=== PATIENT | female | born 1975 | race American Indian/Alaskan Native ===

== ENCOUNTER 2017-06-10 11:07 | Emergency (ER) | payer MEDICAID, OTHER ==
[2017-06-10 11:16] VITALS: BMI 28.2
[2017-06-10 11:34] VITALS: TEMP 98
[2017-06-10] MEDS ORDERED: Sodium Chloride 0.9% 500 ML IV ONE (11:40)
--- NOTE | 2017-06-10 11:50 | ED PDOC ---
Arrival/HPI - General Chief Complaint: Pain, Chronic Time Seen by Provider: 06/10/17 11:27 Historian: Patient - History of Present Illness Narrative History of Present Illness (Text): 06/10/17 11:52 A 42 year old female, whose past medical history includes Lupus, presents to the emergency department because she didn't feel well this morning. Patient reports she developed chest pain, abdominal pain, back pain, headache, generalized muscle aches and cramps, dizziness, nausea and diaphoresis. States she thinks it is flare up of lupus. Patient has not been on her medications in about 6 months. Patient was taking flexeril, plaquenil and diclofenac. Denies any vomiting, diarrhea, shortness of breath, fever or any other complaints at this time. Patient also denies smoking. Symptom Onset: Sudden Symptom Course: Unchanged Activities at Onset: Rest Context: Home Associated Symptoms (Text): 06/10/17 12:29 patient has not had treatment for her lupus in many months.She believes that she woke up this morning with a lupus flare.She has multiple complaints. She complains of headache dizziness or lightheadedness and nausea diaphoresis chest pain abdominal pain back pain generalized myalgias with cramps. She does not appear ill. Past Medical History - Provider Review Nursing Documentation Reviewed: Yes - Infectious Disease Hx of Infectious Diseases: None - Tetanus Immunization Tetanus Immunization: Unknown - Cardiac Hx Cardiac Disorders: No - Pulmonary Hx Respiratory Disorders: No - Neurological Hx Neurological Disorder: Yes HX Cerebrovascular Accident: Yes (2010) - HEENT Hx HEENT Disorder: No - Renal Hx Renal Disorder: No - Endocrine/Metabolic Hx Endocrine Disorders: Yes Hx Systemic Lupus Erythematosus: Yes - Hematological/Oncological Hx Blood Disorders: No - Integumentary Hx Dermatological Disorder: No - Musculoskeletal/Rheumatological Hx Musculoskeletal Disorders: Yes Hx Arthritis: Yes (Rheumatoid) Hx Rheumatoid Arthritis: Yes Other/Comment: lupus - Gastrointestinal Hx Gastrointestinal Disorders: No - Genitourinary/Gynecological Hx Genitourinary Disorders: No - Psychiatric Hx Psychophysiologic Disorder: No Hx Depression: No Hx Emotional Abuse: No Hx Physical Abuse: No Hx Substance Use: No - Past Surgical History Past Surgical History: No Previous - Suicidal Assessment Feels Threatened In Home Enviroment: No Family/Social History - Physician Review Nursing Documentation Reviewed: Yes Family/Social History: No Known Family HX Smoking Status: Never Smoked Hx Alcohol Use: No Hx Substance Use: No Hx Substance Use Treatment: No Allergies/Home Meds Allergies/Adverse Reactions: Allergies No Known Allergies Allergy (Verified 06/10/17 11:33) Home Medications: Home Meds Medication Instructions Recorded Confirmed Diclofenac [Diclofenac] 75 mg PO DAILY 08/30/13 06/10/17 Hydroxychloroquine Sulfate 200 mg PO BID 08/30/13 06/10/17 [Plaquenil] Review of Systems - Physician Review All systems were reviewed & negative as marked: Yes - Review of Systems Constitutional: Other (generalized muscle aches and cramps). absent: Fevers Respiratory: absent: SOB, Cough Cardiovascular: Chest Pain. absent: Palpitations, Syncope Gastrointestinal: Abdominal Pain, Nausea. absent: Diarrhea, Vomiting Musculoskeletal: Back Pain, Myalgias Neurological: Headache, Dizziness. absent: Focal Weakness Endocrine: Diaphoresis Physical Exam Vital Signs Reviewed: Yes Vital Signs Temp Pulse Resp BP Pulse Ox 06/10/17 11:21 98 F 72 18 117/77 100 Temperature: Afebrile Blood Pressure: Normal Pulse: Regular Respiratory Rate: Normal Appearance: Positive for: Well-Appearing, Non-Toxic, Uncomfortable Pain Distress: Mild Mental Status: Positive for: Alert and Oriented X 3 - Systems Exam Head: Present: Atraumatic, Normocephalic Pupils: Present: PERRL Extroacular Muscles: Present: EOMI Conjunctiva: Present: Normal Mouth: Present: Moist Mucous Membranes Pharnyx: No: ERYTHEMA, EXUDATE, TONSILS ENLARGED Neck: Present: Normal Range of Motion Respiratory/Chest: Present: Clear to Auscultation, Good Air Exchange. No: Respiratory Distress, Accessory Muscle Use Cardiovascular: Present: Regular Rate and Rhythm, Normal S1, S2. No: Murmurs Abdomen: Present: Normal Bowel Sounds. No: Tenderness, Distention, Peritoneal Signs Back: Present: Normal Inspection Upper Extremity: Present: Normal Inspection. No: Cyanosis, Edema Lower Extremity: Present: Normal Inspection. No: Edema Neurological: Present: GCS=15, CN II-XII Intact, Speech Normal Skin: Present: Warm, Dry, Normal Color. No: Rashes Psychiatric: Present: Alert, Oriented x 3, Normal Insight, Normal Concentration Medical Decision Making ED Course and Treatment: 06/10/17 11:43 Impression: A 42 year old female with flare up of lupus. Plan: -- EKG -- labs -- IV fluids, Toradol, Zofran -- Urinalysis -- Reassess and disposition Prior Visits: Notes and results from previous visits were reviewed. Patient last reported to the emergency department on 03/02/16 for evaluation of lupus flare up. Progress Notes: 06/10/17 12:31 EKG shows normal sinus rhythm rate approximately [address] or T-wave changes 06/10/17 13:47 Symptoms improved. Discharged home accompanied by family. Phone number given for the clinic so patient can follow up and get back on to her regular regimen. We'll treat with prednisone and Ultram for the short-term. - Lab Interpretations Lab Results: 06/10/17 12:20 06/10/17 12:50 Lab Results 06/10/17 12:50: Sodium 140, Potassium 3.8, Chloride 107, Carbon Dioxide 24, Anion Gap 13, BUN 20, Creatinine 0.9, Est GFR ( Amer) > 60, Est GFR (Non- Af Amer) > 60, Random Glucose 90, Calcium 8.4, Total Bilirubin 0.4, AST 40 H, ALT 29, Alkaline Phosphatase 60, Lactate Dehydrogenase 525, Total Creatine Kinase 278 H, CK-MB (CK-2) 1.9, CK-MB (CK-2) % Cancelled, Troponin I < 0.01, Total Protein 7.5, Albumin 4.0, Globulin 3.5, Albumin/Globulin Ratio 1.1, Lipase 294 06/10/17 12:20: WBC 5.9 D, RBC 4.15, Hgb 9.9 L, Hct 31.4 L, MCV 75.7 L, MCH 23.9 L, MCHC 31.5, RDW 16.0 H, Plt Count 157, MPV 11.1 H, Gran % 84.5 H, Lymph % (Auto) 9.4 L, [place] % (Auto) 5.8, Eos % (Auto) 0.0 L, Baso % (Auto) 0.3, Gran # 4.95, Lymph # 0.6 L, [place] # 0.3, Eos # 0.0, Baso # 0.02 I have reviewed the lab results: Yes - EKG Interpretation Interpreted by ED Physician: Yes Type: 12 lead EKG - Medication Orders Current Medication Orders: Discontinued Medications Sodium Chloride (Sodium Chloride 0.9%) 500 mls @ 500 mls/hr IV ONCE ONE Stop: 06/10/17 12:39 Last Admin: 06/10/17 12:00 Dose: 500 mls/hr Ketorolac Tromethamine (Toradol) 30 mg IVP ONCE ONE Stop: 06/10/17 11:41 Last Admin: 06/10/17 13:16 Dose: 30 mg Ondansetron HCl (Zofran Inj) 4 mg IVP ONCE ONE Stop: 06/10/17 11:41 Last Admin: 06/10/17 12:00 Dose: 4 mg - Scribe Statement The provider has reviewed the documentation as recorded by the Lolly Landin Provider Scribe Attestation: All medical record entries made by the Lolly were at my direction and personally dictated by me. I have reviewed the chart and agree that the record accurately reflects my personal performance of the history, physical exam, medical decision making, and the department course for this patient. I have also personally directed, reviewed, and agree with the discharge instructions and disposition. Disposition/Present on Arrival - Present on Arrival Any Indicators Present on Arrival: No History of DVT/PE: No History of Uncontrolled Diabetes: No Urinary Catheter: No History of Decub. Ulcer: No History Surgical Site Infection Following: None - Disposition Have Diagnosis and Disposition been Completed?: Yes Diagnosis: Lupus (systemic lupus erythematosus) Disposition: HOME/ ROUTINE Disposition Time: 13:48 Patient Plan: Discharge Condition: IMPROVED Discharge Instructions (ExitCare): Connective Tissue Disorders (ED), Autoimmune Disease (ED) Additional Instructions: Moist heat. Follow-up in the clinic. Follow up in ER as needed. Prescriptions: Prednisone [Deltasone] 20 mg PO DAILY #5 tablet Cyclobenzaprine [Flexeril] 5 mg PO Q8 #15 tab Tramadol HCl [Ultram] 50 mg PO Q6 PRN #15 tab PRN Reason: Pain Referrals: PCP,NO [Primary Care Provider] - Follow up with primary [facility] [place] [Outside] - Follow up with primary
[2017-06-10 12:28] LABS: BASO # 0.02 K/mm3 (0.0-2.0); BASO % 0.3 % (0.0-3.0); GRAN # 4.95 (1.4-6.5); GRAN % 84.5 % (50.0-68.0); HEMOGLOBIN 9.9 gm/dL (12.0-16.0); LYMPH # 0.6 (1.2-3.4); LYMPH % 9.4 % (22.0-35.0); MEAN CELL VOLUME 75.7 fL (80.0-105.0); MEAN CORPUSCULAR HEMOGLOBIN 23.9 pg (25.0-35.0); MEAN CORPUSCULAR HGB CONC 31.5 g/dl (31.0-37.0); MEAN PLATELET VOLUME 11.1 fl (7.0-11.0); MONO # 0.3 (0.1-0.6); MONO % 5.8 % (1.0-6.0); PLATELET COUNT 157 10^3/uL (120.0-450.0); RBC 4.15 10^6/uL (3.5-6.1); WHITE BLOOD COUNT 5.9 10^3/ul (4.5-11.0)
[2017-06-10 13:12] LABS: ALB/GLOB RATIO 1.1 (1.1-1.8); ALT/SGPT 29 U/L (7-56); AST/SGOT 40 U/L (15-39); BLOOD UREA NITROGEN 20 mg/dL (7-21); CALCIUM 8.4 mg/dL (8.4-10.5); GFR AFRICAN-AMERICAN > 60; GFR NON-AFRICAN AMERICAN > 60; LIPASE 294 U/L (23-300)
[2017-06-10 13:24] LABS: TROPONIN I < 0.01 ng/mL
[2017-06-10 13:28] LABS: CK-MB 1.9 ng/mL (0.0-3.6)
[2017-06-10 14:08] VITALS: BP 116/70; PULSE 77; RESP 16; O2SAT 99
--- NOTE | 2017-06-10 20:53 | CARD ---
APPROVED REPORT EKG Measurement Heart [id number] <Conclusion> Normal sinus rhythm Normal ECG
== END 2017-06-10 14:08 | disposition home or self-care (01) ==
LOC: ED 11:07
DX: M32.9 Systemic lupus erythematosus, unspecified (principal)
CPT/HCPCS: 80053; 82550; 82553; 83615; 83690; 84484; 85025; 93005; 96361; 96374; 96375; 99284; J1885; J2405; J7040

== ENCOUNTER 2017-07-02 02:12 | Emergency (ER) | payer MEDICAID, OTHER ==
[2017-07-02 02:13] VITALS: BMI 28.2
[2017-07-02] MEDS ORDERED: DiphenhydrAMINE 50 mg/ml Inj IVP ONE (02:38)
[2017-07-02] MEDS ORDERED: Famotidine 20mg/50ml 20 MG/50 ML BAG IVPB STA (02:38)
--- NOTE | 2017-07-02 02:46 | ED PDOC ---
Arrival/HPI - General Chief Complaint: Allergic Reaction Time Seen by Provider: 07/02/17 02:19 Historian: Patient, Family - History of Present Illness Narrative History of Present Illness (Text): 07/02/17 02:37 Francy Menjivar is a 42 year old female, with a history of lupus, rheumatoid arthritis and CVA, presents to the emergency department complaining of diffuse itchy hives after taking her medications. According to family member, patient may have developed an allergic reaction to aspirin, which patient took additional to her routine meds. Denies any tongue swelling, throat fullness or difficulty breathing. Denies any chest pain. Denies fever, chills, headache, dizziness, nausea, vomiting, urinary symptoms, or any other complaints at this time. Time/Duration: 1 hour Symptom Onset: Sudden Symptom Course: Unchanged Severity Level: Mild Activities at Onset: Light Context: Home Past Medical History - Provider Review Nursing Documentation Reviewed: Yes - Infectious Disease Hx of Infectious Diseases: None - Tetanus Immunization Tetanus Immunization: Unknown - Cardiac Hx Cardiac Disorders: No - Pulmonary Hx Respiratory Disorders: No - Neurological Hx Neurological Disorder: Yes HX Cerebrovascular Accident: Yes (2010) - HEENT Hx HEENT Disorder: No - Renal Hx Renal Disorder: No - Endocrine/Metabolic Hx Endocrine Disorders: Yes Hx Systemic Lupus Erythematosus: Yes - Hematological/Oncological Hx Blood Disorders: No - Integumentary Hx Dermatological Disorder: No - Musculoskeletal/Rheumatological Hx Musculoskeletal Disorders: Yes Hx Arthritis: Yes (Rheumatoid) Hx Rheumatoid Arthritis: Yes Other/Comment: lupus - Gastrointestinal Hx Gastrointestinal Disorders: No - Genitourinary/Gynecological Hx Genitourinary Disorders: No - Psychiatric Hx Psychophysiologic Disorder: No Hx Depression: No Hx Emotional Abuse: No Hx Physical Abuse: No Hx Substance Use: No - Past Surgical History Past Surgical History: No Previous - Anesthesia Hx Anesthesia: No - Suicidal Assessment Feels Threatened In Home Enviroment: No Family/Social History - Physician Review Nursing Documentation Reviewed: Yes Family/Social History: No Known Family HX Smoking Status: Never Smoked Hx Alcohol Use: No Hx Substance Use: No Hx Substance Use Treatment: No Allergies/Home Meds Allergies/Adverse Reactions: Allergies aspirin [From Wanda Aspirin] Allergy (Verified 07/02/17 03:45) RASH Home Medications: Home Meds Medication Instructions Recorded Confirmed Hydroxychloroquine Sulfate 200 mg PO BID 08/30/13 07/02/17 [Plaquenil] Review of Systems - Physician Review All systems were reviewed & negative as marked: Yes - Review of Systems Constitutional: Normal. absent: Fatigue, Fevers Respiratory: Normal. absent: SOB, Cough Cardiovascular: Normal, Syncope. absent: Chest Pain, Palpitations Gastrointestinal: absent: Abdominal Pain, Diarrhea, Nausea, Vomiting Skin: Rash (itchy hives ) Psychiatric: Normal Physical Exam Vital Signs Reviewed: Yes Vital Signs Temp Pulse Resp BP Pulse Ox 07/02/17 04:45 72 17 116/83 100 07/02/17 03:54 97.9 F 79 17 110/71 100 Temperature: Afebrile Blood Pressure: Normal Pulse: Regular Respiratory Rate: Normal Appearance: Positive for: Well-Appearing, Non-Toxic, Comfortable Pain Distress: None Mental Status: Positive for: Alert and Oriented X 3 - Systems Exam Head: Present: Atraumatic, Normocephalic Pupils: Present: PERRL Conjunctiva: Present: Normal Mouth: Present: Moist Mucous Membranes Pharnyx: Present: Normal. No: ERYTHEMA, EXUDATE, TONSILS ENLARGED Respiratory/Chest: Present: Clear to Auscultation, Good Air Exchange. No: Respiratory Distress, Accessory Muscle Use Cardiovascular: Present: Regular Rate and Rhythm, Normal S1, S2. No: Murmurs Abdomen: Present: Normal Bowel Sounds. No: Tenderness, Distention, Peritoneal Signs Upper Extremity: Present: Normal Inspection. No: Cyanosis, Edema Lower Extremity: Present: Normal Inspection. No: Edema Neurological: Present: GCS=15, CN II-XII Intact, Speech Normal Skin: Present: Warm, Dry, Rashes (Urticaria ), Normal Color Psychiatric: Present: Alert, Oriented x 3 Medical Decision Making ED Course and Treatment: 07/02/17 02:48 Impression: A 42 year old female who presents to the emergency department complaining of allergic hives. Plan: -- EKG -- Benadryl -- Pepcid -- Solumedrol -- Reassess and disposition Progress Notes: 07/02/17 2:48 EKG reviewed by me: NSR @ 75 bpm. Normal [place]. Normal interval. 07/02/17 04:33 On re-evaluation, patient feels better and is in no acute distress. I have discussed the results and plan with the patient, who expresses understanding. Patient in agreement with plan to be discharged home. Patient is stable for discharge. Patient was instructed to follow up with physician or return if symptoms worsen or new concerning symptoms arise. Re-evaluation Time: :33 Reassessment Condition: Re-examined, Improved - Medication Orders Current Medication Orders: Discontinued Medications Diphenhydramine HCl (Benadryl) 25 mg IVP ONCE ONE Stop: 07/02/17 02:39 Last Admin: 07/02/17 02:50 Dose: 25 mg Comments: Administration without test cleared with pharmacy. Famotidine (Pepcid 20mg/50ml Premix) 20 mg in 50 mls @ 100 mls/hr IVPB STAT STA Stop: 07/02/17 03:07 Last Admin: 07/02/17 02:55 Dose: 100 mls/hr Comments: Administration without test cleared by pharmacy. Methylprednisolone (Solu-Medrol) 125 mg IVP ONCE ONE Stop: 07/02/17 02:39 Last Admin: 07/02/17 02:53 Dose: 125 mg Comments: Administration without test cleared with Dr. Graham, explained the risk to the patient in case of , patient gave consent to administer meds. Patient is alert awake and oriented. - Scribe Statement The provider has reviewed the documentation as recorded by the Scribe Holland Valle Provider Attestation: Provider Scribe Attestation: All medical record entries made by the Scribe were at my direction and personally dictated by me. I have reviewed the chart and agree that the record accurately reflects my personal performance of the history, physical exam, medical decision making, and the department course for this patient. I have also personally directed, reviewed, and agree with the discharge instructions and disposition. Disposition/Present on Arrival - Present on Arrival Any Indicators Present on Arrival: No History of DVT/PE: No History of Uncontrolled Diabetes: No Urinary Catheter: No History of Decub. Ulcer: No History Surgical Site Infection Following: None - Disposition Have Diagnosis and Disposition been Completed?: Yes Diagnosis: Allergic reaction Disposition: HOME/ ROUTINE Disposition Time: 04:33 Patient Problems: Current Active Problems Problem Status Onset Allergic reaction Acute Condition: GOOD Discharge Instructions (ExitCare): Urticaria (ED) Prescriptions: hydrOXYzine HCl [Atarax] 25 mg PO Q6H #21 tab Famotidine [Pepcid] 20 mg PO BID #10 tab predniSONE [predniSONE Tab] 20 mg PO TID #15 tab Forms: [employer] ([place])
[2017-07-02 03:55] VITALS: RESP 17; TEMP 97.9; O2SAT 100
[2017-07-02 04:46] VITALS: BP 116/83; PULSE 72
--- NOTE | 2017-07-02 19:42 | CARD ---
APPROVED REPORT EKG Measurement Heart [id number] <Conclusion> Normal sinus rhythm Normal ECG
== END 2017-07-02 04:50 | disposition home or self-care (01) ==
LOC: ED 02:12
DX: L50.9 Urticaria, unspecified (principal); T50.905A Adverse effect of unspecified drugs, medicaments and biological substances, initial encounter; Y92.009 Unspecified place in unspecified non-institutional (private) residence as the place of occurrence of the external cause
CPT/HCPCS: 93005; 96365; 96375; 99283; J1200; J2930

== ENCOUNTER 2018-01-20 20:00 | Emergency (ER) | payer SELFPAY ==
[2018-01-20 20:01] VITALS: BMI 28.2
[2018-01-20 20:10] VITALS: TEMP 98.1
--- NOTE | 2018-01-20 20:47 | ED PDOC ---
Arrival/HPI <David Lara - Last Filed: 01/20/18 23:17> - General Historian: Patient - History of Present Illness Time/Duration: Other (see hpi) Context: Home <Salome Camacho - Last Filed: 01/21/18 00:35> - General Chief Complaint: Pain, Chronic Time Seen by Provider: 01/20/18 20:35 - History of Present Illness Narrative History of Present Illness (Text): 01/20/18 20:47 Francy Menjivar is a 42 year old female, with a history of lupus, rheumatoid arthritis and CVA, presents to the emergency department complaining of generalized body pain x 3 hours. Patient stated pain is making feel nauseous. Patient feels her symptoms are from Lupus exacerbation. Patient denies sob, cp , abdominal pain, pelvic pain, urinary symptoms, or abnormal gait. (Salome Camacho ) Past Medical History - Provider Review Nursing Documentation Reviewed: Yes - Infectious Disease Hx of Infectious Diseases: None - Tetanus Immunization Tetanus Immunization: Unknown - Cardiac Hx Cardiac Disorders: No - Pulmonary Hx Respiratory Disorders: No - Neurological Hx Neurological Disorder: Yes HX Cerebrovascular Accident: Yes (2010) - HEENT Hx HEENT Disorder: No - Renal Hx Renal Disorder: No - Endocrine/Metabolic Hx Endocrine Disorders: Yes Hx Systemic Lupus Erythematosus: Yes - Hematological/Oncological Hx Blood Disorders: No - Integumentary Hx Dermatological Disorder: No - Musculoskeletal/Rheumatological Hx Musculoskeletal Disorders: Yes Hx Arthritis: Yes (Rheumatoid) Hx Rheumatoid Arthritis: Yes Other/Comment: lupus - Gastrointestinal Hx Gastrointestinal Disorders: No - Genitourinary/Gynecological Hx Genitourinary Disorders: No - Psychiatric Hx Psychophysiologic Disorder: No Hx Depression: No Hx Emotional Abuse: No Hx Physical Abuse: No Hx Substance Use: No - Past Surgical History Past Surgical History: No Previous - Anesthesia Hx Anesthesia: No - Suicidal Assessment Feels Threatened In Home Enviroment: No <Salome Camacho - Last Filed: 01/21/18 00:35> Family/Social History - Physician Review Nursing Documentation Reviewed: Yes Family/Social History: Other (noncontributory) Smoking Status: Never Smoked Hx Alcohol Use: No Hx Substance Use: No Hx Substance Use Treatment: No <Salome Camacho - Last Filed: 01/21/18 00:35> Allergies/Home Meds <David Lara Last Filed: 01/20/18 23:17> <Salome Camacho - Last Filed: 01/21/18 00:35> Allergies/Adverse Reactions: Allergies aspirin [From Wanda Aspirin] Allergy (Verified 07/02/17 03:45) RASH Home Medications: Home Meds Medication Instructions Recorded Confirmed Hydroxychloroquine Sulfate 200 mg PO BID 08/30/13 07/02/17 [Plaquenil] Review of Systems - Review of Systems Constitutional: Normal. absent: Fatigue, Weight Change, Fevers Eyes: Normal ENT: Normal. absent: Sore Throat, Rhinorrhea, Sinus Congestion Respiratory: Normal. absent: SOB, Cough Cardiovascular: Normal Gastrointestinal: Normal Genitourinary Female: Normal Musculoskeletal: Arthralgias, Myalgias Skin: Normal. absent: Rash Neurological: Normal. absent: Headache, Dizziness, Focal Weakness, Gait Changes , Speech Changes, Facial Droop, Disequilibrium, Seizure Endocrine: Normal Hemo/Lymphatic: Normal Psychiatric: Normal <Salome Camacho P - Last Filed: 01/21/18 00:35> Physical Exam Temperature: Afebrile Blood Pressure: Normal Pulse: Tachycardic Respiratory Rate: Normal Appearance: Positive for: Well-Appearing, Non-Toxic, Comfortable Pain Distress: None Mental Status: Positive for: Alert and Oriented X 3 - Systems Exam Head: Present: Atraumatic, Normocephalic Pupils: Present: PERRL Extroacular Muscles: Present: EOMI Conjunctiva: Present: Normal Mouth: Present: Moist Mucous Membranes Neck: Present: Normal Range of Motion Respiratory/Chest: Present: Clear to Auscultation, Good Air Exchange. No: Respiratory Distress, Accessory Muscle Use Cardiovascular: Present: Regular Rate and Rhythm, Normal S1, S2, Tachycardic. No: Murmurs Abdomen: Present: Normal Bowel Sounds. No: Tenderness, Distention, Peritoneal Signs, Rebound, Guarding Back: Present: Normal Inspection. No: CVA Tenderness Upper Extremity: Present: Normal Inspection, Normal ROM. No: Cyanosis, Edema Lower Extremity: Present: Normal Inspection, Normal ROM. No: Edema Neurological: Present: GCS=15, CN II-XII Intact, Speech Normal, Motor Func Grossly Intact, Normal Sensory Function, Normal Cerebellar Funct, Gait Normal Skin: Present: Warm, Dry, Normal Color. No: Rashes Psychiatric: Present: Alert, Oriented x 3, Normal Insight, Normal Concentration <Salome Camacho - Last Filed: 01/21/18 00:35> Vital Signs Temp Pulse Resp BP Pulse Ox 01/21/18 00:26 74 18 98/60 L 100 01/20/18 20:05 98.1 F 118 H 24 152/78 H 99 Medical Decision Making <David Lara - Last Filed: 01/20/18 23:17> Re-evaluation Time: 23:03 Reassessment Condition: Re-examined, Improved - Lab Interpretations I have reviewed the lab results: Yes Interpretation: No clinic. lab abnormalty <Salome Camacho - Last Filed: 01/21/18 00:35> ED Course and Treatment: 01/20/18 23:02 Re-evaluation. Patient feels better. Discussed results and plan with patient who expresses understanding. All questions answered and there is agreement with the plan to discharge home with instructions. Patient stable for discharge. Return if symptoms persist or worsen. Generalized pain has improved. Patient feels well and she wishes to be discharge home 01/21/18 00:00 I reviewed the risk of using Prednisone with patient which includes AVN, osteoporosis, diabetes, glaucoma, renal failure, liver failure, or worsen of rash. She understands she could stop Prednisone at any time (Salome Camacho) - Lab Interpretations Lab Results: 01/20/18 20:55 01/20/18 20:55 Lab Results 01/20/18 23:50: Urine Color Yellow, Urine Appearance Clear, Urine pH 8.0, Ur Specific [place] 1.015, Urine Protein Trace H, Urine Glucose (UA) Negative, Urine Ketones 40 H, Urine Blood Negative, Urine Nitrate Negative, Urine Bilirubin Negative, Urine Urobilinogen 0.2, Ur Leukocyte Esterase Negative, Urine RBC 0 - 2, Urine WBC 0 - 2, Ur Epithelial Cells 1 - 3, Urine Other Mucus 01/20/18 20:55: Sodium 141, Potassium 3.8, Chloride 102, Carbon Dioxide 27, Anion Gap 15, BUN 18, Creatinine 0.9, Est GFR ( Amer) > 60, Est GFR (Non- Af Amer) > 60, Random Glucose 85, Calcium 9.6, Total Bilirubin 0.3, AST 39 H, ALT 36, Alkaline Phosphatase 57, Total Protein 8.3, Albumin 4.6, Globulin 3.7, Albumin/Globulin Ratio 1.3 01/20/18 20:55: WBC 7.2 D, RBC 4.16, Hgb 9.1 L, Hct 29.8 L, MCV 71.6 L, MCH 21.9 L, MCHC 30.5 L, RDW 17.4 H, Plt Count 223, MPV 10.6, Gran % 72.7 H, Lymph % (Auto) 20.2 L, Treasure % (Auto) 6.5 H, Eos % (Auto) 0.3 L, Baso % (Auto) 0.3, Gran # 5.25, Lymph # (Auto) 1.5, Treasure # (Auto) 0.5, Eos # (Auto) 0.0, Baso # ( Auto) 0.02 - Medication Orders Current Medication Orders: Discontinued Medications Sodium Chloride (Sodium Chloride 0.9%) 1,000 mls @ 999 mls/hr IV .Q1H1M STA Stop: 01/20/18 21:48 Last Admin: 01/20/18 21:16 Dose: 999 mls/hr eMAR Start Stop Document 01/20/18 21:16 JO (Rec: 01/20/18 21:16 [place] [id number]) Intravenous Solution Start Date 01/20/18 Start Time 21:16 End Date 01/20/18 End time 22:17 Total Infusion Time 61 Ketorolac Tromethamine (Toradol) 30 mg IVP STAT STA Stop: 01/20/18 20:49 Last Admin: 01/20/18 21:16 Dose: 30 mg MAR Pain Assessment Document 01/20/18 21:16 JOL (Rec: 01/20/18 21:17 [facility]) Pain Reassessment Is this a pain reassessment? No Sleep Is patient sleeping during reassessment? No Presence of Pain Presence of Pain Yes Pain Scale Used Pain Scale Used Numeric Location Pain Location Body Site Generalized Description Intensity of Pain at present 9 Pain Behavior Moaning Withdrawal from Touch Restlessness Refusal to Eat Facial Grimacing IVP Administration Document 01/20/18 21:16 JO (Rec: 01/20/18 21:17 [email or web address] Charges for Administration # of IVP Administrations 1 Ondansetron HCl (Zofran Inj) 4 mg IVP STAT STA Stop: 01/20/18 20:49 Last Admin: 01/20/18 21:16 Dose: 4 mg IVP Administration Document 01/20/18 21:16 JOCatrina (Rec: 01/20/18 21:16 [facility] Charges for Administration # of IVP Administrations 1 - PA / CARDIAC SPECIALIST / Resident Statement MD/DO has reviewed & agrees with the documentation as recorded. <David Lara - Last Filed: 01/20/18 23:17> Disposition/Present on Arrival <David Lara - Last Filed: 01/20/18 23:17> - Present on Arrival Any Indicators Present on Arrival: No History of DVT/PE: No History of Uncontrolled Diabetes: No Urinary Catheter: No History of Decub. Ulcer: No History Surgical Site Infection Following: None - Disposition Have Diagnosis and Disposition been Completed?: Yes Disposition Time: 00:13 Patient Plan: Discharge <Salome Camacho - Last Filed: 01/21/18 00:35> - Disposition Diagnosis: Musculoskeletal pain, Chronic anemia Disposition: HOME/ ROUTINE Patient Problems: Current Active Problems Problem Status Onset Musculoskeletal pain Acute Condition: GOOD Additional Instructions: Call private doctor for follow up visit in 1-2 days. Take medication as instructed with food. return to emergency if symptoms worsen. Prescriptions: Acetaminophen with Codeine [Tylenol with Codeine #3 Tablet] 1 each PO Q6H PRN # 10 tablet PRN Reason: Pain, Severe (8-10) Cyclobenzaprine [Cyclobenzaprine HCl] 10 mg PO DAILY #20 tab Prednisone [Deltasone] 20 mg PO DAILY #5 tablet Referrals: Raul Mcintosh, [Primary Care Provider] - Follow up with primary [facility] [Outside] - Follow up with primary [facility] [Outside] - Follow up with primary Forms: [employer] (Maldivian), WORK NOTE
[2018-01-20] MEDS ORDERED: Sodium Chloride 0.9% 1,000 ML IV STA (20:48)
[2018-01-20 21:15] LABS: BASO # 0.02 K/mm3 (0.0-2.0); BASO % 0.3 % (0.0-3.0); EOS % 0.3 % (1.5-5.0); GRAN # 5.25 (1.4-6.5); GRAN % 72.7 % (50.0-68.0); HEMOGLOBIN 9.1 g/dL (12.0-16.0); LYMPH # 1.5 (1.2-3.4); LYMPH % 20.2 % (22.0-35.0); MEAN CELL VOLUME 71.6 fl (80.0-105.0); MEAN CORPUSCULAR HEMOGLOBIN 21.9 pg (25.0-35.0); MEAN CORPUSCULAR HGB CONC 30.5 g/dl (31.0-37.0); MEAN PLATELET VOLUME 10.6 fl (7.0-11.0); MONO # 0.5 (0.1-0.6); MONO % 6.5 % (1.0-6.0); RED CELL DISTRIBUTION WIDTH 17.4 % (11.5-14.5); WHITE BLOOD COUNT 7.2 10^3/ul (4.5-11.0)
[2018-01-20 21:26] LABS: ALB/GLOB RATIO 1.3 (1.1-1.8); ALBUMIN 4.6 g/dL (3.0-4.8); ALT/SGPT 36 U/L (7-56); AST/SGOT 39 U/L (14-36); BLOOD UREA NITROGEN 18 mg/dL (7-21); CALCIUM 9.6 mg/dL (8.4-10.5); GFR AFRICAN-AMERICAN > 60; GFR NON-AFRICAN AMERICAN > 60
[2018-01-21 00:07] LABS: URINE BILIRUBIN NEGATIVE (NEGATIVE); URINE BLOOD NEGATIVE (NEGATIVE); URINE GLUCOSE (UA) NEGATIVE (NEGATIVE); URINE LEUKOCYTE ESTERASE NEGATIVE Leu/uL (NEGATIVE); URINE NITRATE NEGATIVE (NEGATIVE); URINE PROTEIN TRACE mg/dL (<30 mg/dL); URINE UROBILINOGEN 0.2 E.U./dL (<1 E.U./dL)
[2018-01-21 00:09] LABS: URINE APPEARANCE CLEAR (CLEAR); URINE COLOR YELLOW (YELLOW)
[2018-01-21 00:20] LABS: URINE RBC 0 - 2 /hpf (0-2); URINE WBC 0 - 2 /hpf (0-6)
[2018-01-21 00:28] VITALS: BP 98/60; PULSE 74; RESP 18; O2SAT 100
[2018-01-21 06:03] LABS: RBC 4.16 10^6/uL (3.5-6.1)
== END 2018-01-21 00:30 | disposition home or self-care (01) ==
LOC: ED 20:00
DX: M79.1 Myalgia (principal); D64.9 Anemia, unspecified; M32.9 Systemic lupus erythematosus, unspecified; Z86.73 Personal history of transient ischemic attack (TIA), and cerebral infarction without residual deficits
CPT/HCPCS: 80053; 81001; 81025; 85025; 96361; 96374; 96375; 99284; J1885; J2405; J7040

== ENCOUNTER 2018-05-28 21:55 | Emergency (ER) | payer SELFPAY ==
[2018-05-28] MEDS ORDERED: DiphenhydrAMINE 50 mg/ml Inj ONE (22:09)
[2018-05-28 22:16] VITALS: TEMP 98.1; BMI 27.4
--- NOTE | 2018-05-28 22:31 | ED PDOC ---
Arrival/HPI - General Chief Complaint: Allergic Reaction Time Seen by Provider: 05/28/18 22:26 - History of Present Illness Narrative History of Present Illness (Text): 43 year old F c Past medical history of Lupus, RA p/w allergic reaction x 1.5 hours. Patient had some barbeque sauce on ribs as well as iron pills, and within the next 30 minutes, she began having pruritis and rash over her trunk and extremities. She then began feeling short of breath. She took 3 Benadryl pills prior to arrival. She denies throat closing, vomiting, or fever. Past Medical History - Infectious Disease Hx of Infectious Diseases: None - Tetanus Immunization Tetanus Immunization: Unknown - Cardiac Hx Cardiac Disorders: No - Pulmonary Hx Respiratory Disorders: No - Neurological Hx Neurological Disorder: Yes HX Cerebrovascular Accident: Yes (2010) - HEENT Hx HEENT Disorder: No - Renal Hx Renal Disorder: No - Endocrine/Metabolic Hx Endocrine Disorders: Yes Hx Systemic Lupus Erythematosus: Yes - Hematological/Oncological Hx Blood Disorders: No - Integumentary Hx Dermatological Disorder: No - Musculoskeletal/Rheumatological Hx Musculoskeletal Disorders: Yes Hx Arthritis: Yes (Rheumatoid) Hx Rheumatoid Arthritis: Yes Other/Comment: lupus - Gastrointestinal Hx Gastrointestinal Disorders: No - Genitourinary/Gynecological Hx Genitourinary Disorders: No - Psychiatric Hx Psychophysiologic Disorder: No Hx Depression: No Hx Emotional Abuse: No Hx Physical Abuse: No Hx Substance Use: No - Past Surgical History Past Surgical History: No Previous - Anesthesia Hx Anesthesia: No - Suicidal Assessment Feels Threatened In Home Enviroment: No Family/Social History Family/Social History: No Known Family HX Smoking Status: Never Smoked Hx Alcohol Use: No Hx Substance Use: No Hx Substance Use Treatment: No Allergies/Home Meds Allergies/Adverse Reactions: Allergies aspirin [From Wanda Aspirin] Allergy (Verified 07/02/17 03:45) RASH gallagher pepper Allergy (Uncoded 05/28/18 22:18) RASH eggplant Allergy (Uncoded 05/28/18 22:18) RASH Home Medications: Home Meds Medication Instructions Recorded Confirmed Hydroxychloroquine Sulfate 200 mg PO BID 08/30/13 07/02/17 [Plaquenil] Review of Systems - Physician Review All systems were reviewed & negative as marked: Yes - Review of Systems Cardiovascular: absent: Chest Pain Gastrointestinal: absent: Vomiting Physical Exam - Physical Exam Narrative Physical Exam (Text): Gen: Appears anxious, restless Head: NC/AT Eyes: PERRL ENT: No swelling of tongue, airway patent Neck: Supple Chest: No tenderness CV: Mildly tachycardic Lungs: No stridor, no wheezing, pulse oximetry 100% on room air Abd: Soft, NT Back: No CVA tenderness Extremities: No edema Skin: Hives/erythema to extremities chest, back, face Neuro: Alert, no focal deficit Vital Signs Temp Pulse Resp BP Pulse Ox 05/28/18 22:16 98.1 F 114 H 18 141/83 100 Medical Decision Making ED Course and Treatment: Patient immediately administered Benadryl IVP, Pepcid, Solumedrol, and NS 1L. Patient quickly became calm, lying in stretcher, in no distress. No hypotension. Will observe for resolution. Signed out to Emergency department night team. Disposition/Present on Arrival - Present on Arrival Any Indicators Present on Arrival: No History of DVT/PE: No History of Uncontrolled Diabetes: No Urinary Catheter: No History of Decub. Ulcer: No History Surgical Site Infection Following: None - Disposition Have Diagnosis and Disposition been Completed?: No Diagnosis: Allergic reaction Disposition Time: 22:32 Condition: FAIR
[2018-05-29 01:25] VITALS: PULSE 88; O2SAT 98
[2018-05-29 03:47] VITALS: BP 113/69; RESP 16
== END 2018-05-29 03:46 | disposition home or self-care (01) ==
LOC: ED 21:55
DX: T78.49XA Other allergy, initial encounter (principal); X58.XXXA Exposure to other specified factors, initial encounter

== ENCOUNTER 2018-11-03 08:52 | Emergency (ER) | payer SELFPAY ==
[2018-11-03 09:27] VITALS: TEMP 98.1; BMI 28.2
[2018-11-03] MEDS ORDERED: Sodium Chloride 0.9% 1,000 ML IV STA (09:33)
--- NOTE | 2018-11-03 09:42 | ED PDOC ---
Arrival/HPI - General Chief Complaint: Pain, Chronic Time Seen by Provider: 11/03/18 09:36 Historian: Patient - History of Present Illness Narrative History of Present Illness (Text): 11/03/18 09:37 43yo female with pmhx of lupus, CVA, RA bib EMS with complaint of generalized cramping pain with associated nausea and vomiting. Notes previous history of similar symptoms with her Lupus flare up. She denies headache, dizziness, fever, chills, chest pain, SOB, cough, URI symptoms, sick contact, travel, any other compliant. Past Medical History - Provider Review Nursing Documentation Reviewed: Yes - Infectious Disease Hx of Infectious Diseases: None - Tetanus Immunization Tetanus Immunization: Unknown - Cardiac Hx Cardiac Disorders: No - Pulmonary Hx Respiratory Disorders: No - Neurological Hx Neurological Disorder: Yes HX Cerebrovascular Accident: Yes (2010) - HEENT Hx HEENT Disorder: No - Renal Hx Renal Disorder: No - Endocrine/Metabolic Hx Endocrine Disorders: Yes Hx Systemic Lupus Erythematosus: Yes - Hematological/Oncological Hx Blood Disorders: No - Integumentary Hx Dermatological Disorder: No - Musculoskeletal/Rheumatological Hx Musculoskeletal Disorders: Yes Hx Arthritis: Yes (Rheumatoid) Hx Rheumatoid Arthritis: Yes Other/Comment: lupus - Gastrointestinal Hx Gastrointestinal Disorders: No - Genitourinary/Gynecological Hx Genitourinary Disorders: No - Psychiatric Hx Psychophysiologic Disorder: No Hx Depression: No Hx Emotional Abuse: No Hx Physical Abuse: No Hx Substance Use: No - Past Surgical History Past Surgical History: No Previous - Anesthesia Hx Anesthesia: No Hx Anesthesia Reactions: No Hx Malignant Hyperthermia: No - Suicidal Assessment Feels Threatened In Home Enviroment: No Family/Social History - Physician Review Nursing Documentation Reviewed: Yes Family/Social History: Unknown Family HX Smoking Status: Never Smoked Hx Alcohol Use: No Hx Substance Use: No Hx Substance Use Treatment: No Allergies/Home Meds Allergies/Adverse Reactions: Allergies aspirin [From Wanda Aspirin] Allergy (Verified 07/02/17 03:45) RASH gallagher pepper Allergy (Uncoded 05/28/18 22:18) RASH eggplant Allergy (Uncoded 05/28/18 22:18) RASH Home Medications: Home Meds Medication Instructions Recorded Confirmed Hydroxychloroquine Sulfate 200 mg PO BID 08/30/13 07/02/17 [Plaquenil] Review of Systems - Physician Review All systems were reviewed & negative as marked: Yes - Review of Systems Constitutional: Fatigue Eyes: Normal ENT: Normal Respiratory: Normal Cardiovascular: Normal Gastrointestinal: Nausea, Vomiting. absent: Constipation, Diarrhea Genitourinary Female: Normal Musculoskeletal: Normal Skin: Normal Neurological: Normal Endocrine: Normal Hemo/Lymphatic: Normal Psychiatric: Normal Physical Exam Vital Signs Reviewed: Yes Vital Signs Temp Pulse Resp BP Pulse Ox 11/03/18 08:53 98.1 F 78 22 103/66 100 Temperature: Afebrile Blood Pressure: Normal Pulse: Regular Respiratory Rate: Normal Appearance: Positive for: Well-Appearing, Non-Toxic, Comfortable Pain Distress: Mild Mental Status: Positive for: Alert and Oriented X 3 - Systems Exam Head: Present: Atraumatic, Normocephalic Pupils: Present: PERRL Extroacular Muscles: Present: EOMI Conjunctiva: Present: Normal Mouth: Present: Moist Mucous Membranes Neck: Present: Normal Range of Motion Respiratory/Chest: Present: Clear to Auscultation, Good Air Exchange. No: Respiratory Distress, Accessory Muscle Use Cardiovascular: Present: Regular Rate and Rhythm, Normal S1, S2. No: Murmurs Abdomen: No: Tenderness, Distention, Peritoneal Signs Back: Present: Normal Inspection Upper Extremity: Present: Normal Inspection. No: Cyanosis, Edema Lower Extremity: Present: Normal Inspection. No: Edema Neurological: Present: GCS=15, CN II-XII Intact, Speech Normal Skin: Present: Warm, Dry, Normal Color. No: Rashes Psychiatric: Present: Alert, Oriented x 3, Normal Insight, Normal Concentration Medical Decision Making ED Course and Treatment: 11/03/18 19:23 PT in ED for stated history. Labs 1L NS, solu medrol, pepcid, Zofran, morphine On re evaluation she reported improvement of her symptoms Lab was unremarkable Result was DW the pt and she was referred to her PMD. Prednisone and Tylenol #3 rx given. - Medication Orders Current Medication Orders: Famotidine (Pepcid) 20 mg IVP STAT STA Stop: 11/03/18 09:35 Sodium Chloride (Sodium Chloride 0.9%) 1,000 mls @ 999 mls/hr IV .Q1H1M STA Stop: 11/03/18 10:33 Methylprednisolone (Solu-Medrol) 125 mg IVP STAT STA Stop: 11/03/18 09:36 Ondansetron HCl (Zofran Inj) 4 mg IVP STAT STA Stop: 11/03/18 09:34 Disposition/Present on Arrival - Present on Arrival Any Indicators Present on Arrival: No History of DVT/PE: No History of Uncontrolled Diabetes: No Urinary Catheter: No History of Decub. Ulcer: No History Surgical Site Infection Following: None - Disposition Have Diagnosis and Disposition been Completed?: Yes Diagnosis: Generalized pain, Lupus Disposition: HOME/ ROUTINE Disposition Time: 12:05 Patient Plan: Discharge Condition: STABLE Discharge Instructions (ExitCare): Acute Pain, Adult, Lupus (DC) Additional Instructions: Follow up with your Doctor Return to ED for any new symptoms Prescriptions: Acetaminophen with Codeine [Tylenol with Codeine #3 Tablet] 1 each PO Q6 #9 tablet predniSONE [Prednisone] 20 mg PO TID #15 tab Referrals: Mariela Mao MD [Medical Doctor] - Follow up with primary Forms: [employer] (Salvadorean)
[2018-11-03 10:04] LABS: PH,URINE >=9.0 (4.7-8.0); URINE APPEARANCE CLEAR (CLEAR); URINE BILIRUBIN NEGATIVE (NEGATIVE); URINE BLOOD MODERATE (NEGATIVE); URINE COLOR YELLOW (YELLOW); URINE GLUCOSE (UA) NEGATIVE (NEGATIVE); URINE LEUKOCYTE ESTERASE NEGATIVE Leu/uL (NEGATIVE); URINE PROTEIN 30 mg/dL (<30 mg/dL); URINE UROBILINOGEN 0.2 E.U./dL (<1 E.U./dL)
[2018-11-03 10:15] LABS: URINE RBC TNTC /hpf (0-2); URINE WBC 0 - 2 /hpf (0-6)
[2018-11-03 10:16] LABS: URINE BACTERIA FEW (NEG); URINE EPITHELIAL CELLS 0 - 2 /hpf (0-5)
[2018-11-03 10:36] LABS: BASO # 0.03 K/mm3 (0.0-2.0); BASO % 0.4 % (0.0-3.0); EOS % 0.1 % (1.5-5.0); GRAN # 5.36 (1.4-6.5); GRAN % 78.3 % (50.0-68.0); LYMPH # 1.1 (1.2-3.4); LYMPH % 15.7 % (22.0-35.0); MEAN CELL VOLUME 67.8 fl (80.0-105.0); MEAN CORPUSCULAR HEMOGLOBIN 19.9 pg (25.0-35.0); MEAN CORPUSCULAR HGB CONC 29.3 g/dl (31.0-37.0); MEAN PLATELET VOLUME 9.6 fl (7.0-11.0); MONO # 0.4 (0.1-0.6); MONO % 5.5 % (1.0-6.0); RBC 4.53 10^6/uL (3.5-6.1); RED CELL DISTRIBUTION WIDTH 19.3 % (11.5-14.5); WHITE BLOOD COUNT 6.9 10^3/uL (4.5-11.0)
[2018-11-03 10:49] LABS: ALB/GLOB RATIO 1.1 (1.1-1.8); CALCIUM 8.5 mg/dL (8.4-10.5)
[2018-11-03] MEDS ORDERED: Morphine 2 mg/ml ISec IVP STA (10:50)
[2018-11-03 10:55] LABS: INR 0.94; PARTIAL THROMBOPLASTIN TIME 21.3 Seconds (25.1-36.5); PROTHROMBIN TIME 10.8 SECONDS (9.4-12.5)
[2018-11-03 11:00] VITALS: RESP 18
[2018-11-03 12:05] VITALS: BP 107/69; PULSE 69; O2SAT 100
== END 2018-11-03 12:30 | disposition home or self-care (01) ==
LOC: ED 08:52
DX: M32.9 Systemic lupus erythematosus, unspecified (principal); R52 Pain, unspecified; Z86.73 Personal history of transient ischemic attack (TIA), and cerebral infarction without residual deficits; M06.9 Rheumatoid arthritis, unspecified
CPT/HCPCS: 80053; 81001; 83690; 83735; 85025; 85610; 85730; 96374; 96375; 99283; J2270; J2405; J2930; J7030

== ENCOUNTER 2018-12-24 22:29 | Emergency (ER) | payer SELFPAY ==
[2018-12-24 22:30] VITALS: BMI 28.2
[2018-12-24 22:58] VITALS: TEMP 98.1
[2018-12-24] MEDS ORDERED: Morphine 2 mg/ml ISec IVP PRN (23:02)
--- NOTE | 2018-12-24 23:05 | ED PDOC ---
Arrival/HPI - General Chief Complaint: Headache Time Seen by Provider: 12/24/18 22:35 Historian: Patient - History of Present Illness Narrative History of Present Illness (Text): 12/24/18 23:05 Francy Menjivar is a 43 year old female, whose past medical history includes lupus, who presents to the Emergency department complaining of joint pain. Patient states she has been experiencing diffuse joint aches with associated chest tightness, some shortness of breath, and nausea. Patient states symptoms are similar to previous lupus flare-ups. Patient denies any fever, chills, nausea, vomiting, diarrhea, urinary symptoms, back pain, neck pain, headache, dizziness, or any other complaints. Symptom Onset: Gradual Symptom Course: Unchanged Activities at Onset: Light Context: Home Past Medical History - Provider Review Nursing Documentation Reviewed: Yes - Infectious Disease Hx of Infectious Diseases: None - Tetanus Immunization Tetanus Immunization: Unknown - Reproductive Currently : No - Cardiac Hx Cardiac Disorders: No - Pulmonary Hx Respiratory Disorders: No - Neurological Hx Neurological Disorder: Yes HX Cerebrovascular Accident: Yes (2010) - HEENT Hx HEENT Disorder: No - Renal Hx Renal Disorder: No - Endocrine/Metabolic Hx Endocrine Disorders: Yes Hx Systemic Lupus Erythematosus: Yes - Hematological/Oncological Hx Blood Disorders: No - Integumentary Hx Dermatological Disorder: No - Musculoskeletal/Rheumatological Hx Musculoskeletal Disorders: Yes Hx Arthritis: Yes (Rheumatoid) Hx Rheumatoid Arthritis: Yes Other/Comment: lupus - Gastrointestinal Hx Gastrointestinal Disorders: No - Genitourinary/Gynecological Hx Genitourinary Disorders: No - Psychiatric Hx Psychophysiologic Disorder: No Hx Depression: No Hx Emotional Abuse: No Hx Physical Abuse: No Hx Substance Use: No - Past Surgical History Past Surgical History: No Previous - Anesthesia Hx Anesthesia: No Hx Anesthesia Reactions: No Hx Malignant Hyperthermia: No - Suicidal Assessment Feels Threatened In Home Enviroment: No Family/Social History - Physician Review Nursing Documentation Reviewed: Yes Family/Social History: Unknown Family HX Smoking Status: Never Smoked Hx Alcohol Use: No Hx Substance Use: No Hx Substance Use Treatment: No Allergies/Home Meds Allergies/Adverse Reactions: Allergies aspirin [From Wanda Aspirin] Allergy (Verified 07/02/17 03:45) RASH gallagher pepper Allergy (Uncoded 05/28/18 22:18) RASH eggplant Allergy (Uncoded 05/28/18 22:18) RASH Home Medications: Home Meds Medication Instructions Recorded Confirmed Hydroxychloroquine Sulfate 200 mg PO BID 08/30/13 07/02/17 [Plaquenil] Review of Systems - Physician Review All systems were reviewed & negative as marked: Yes - Review of Systems Constitutional: Normal. absent: Fevers Eyes: Normal ENT: Normal Respiratory: SOB. absent: Cough Cardiovascular: Chest Pain Gastrointestinal: Normal Genitourinary Female: Normal Musculoskeletal: Normal Skin: Normal Neurological: Normal Endocrine: Normal Hemo/Lymphatic: Normal Psychiatric: Normal Physical Exam Vital Signs Reviewed: Yes Vital Signs Temp Pulse Resp BP Pulse Ox 12/24/18 22:57 98.1 F 70 18 106/78 100 Temperature: Afebrile Blood Pressure: Normal Pulse: Regular Respiratory Rate: Normal Appearance: Positive for: Well-Appearing, Non-Toxic, Comfortable Pain Distress: None Mental Status: Positive for: Alert and Oriented X 3 - Systems Exam Head: Present: Atraumatic, Normocephalic Pupils: Present: PERRL Extroacular Muscles: Present: EOMI Conjunctiva: Present: Normal Mouth: Present: Moist Mucous Membranes Neck: Present: Normal Range of Motion Respiratory/Chest: Present: Clear to Auscultation, Good Air Exchange. No: Respiratory Distress, Accessory Muscle Use Cardiovascular: Present: Regular Rate and Rhythm, Normal S1, S2. No: Murmurs Abdomen: No: Tenderness, Distention, Peritoneal Signs Back: Present: Normal Inspection Upper Extremity: Present: Normal Inspection. No: Cyanosis, Edema Lower Extremity: Present: Normal Inspection. No: Edema Neurological: Present: GCS=15, CN II-XII Intact, Speech Normal Skin: Present: Warm, Dry, Normal Color. No: Rashes Psychiatric: Present: Alert, Oriented x 3, Normal Insight, Normal Concentration Medical Decision Making ED Course and Treatment: 12/24/18 23:05 Impression: 43 year old female complaining of diffuse joint aches, chest pain, shortness of breath, and nausea. Plan: -- EKG -- Labs, troponin -- Rapid influenza -- Urinalysis, urine drug screen -- IV fluids -- Morphine -- Reassess and disposition Progress Notes: Reviewed EKG, NSR at [address]-segment elevations or depressions, no T-wave inversions, normal intervals. - EKG Interpretation Interpreted by ED Physician: Yes Type: 12 lead EKG - Medication Orders Current Medication Orders: Sodium Chloride (Sodium Chloride 0.9%) 1,000 mls @ 80 mls/hr IV .[id number] LUKAS Morphine Sulfate (Morphine) 2 mg IVP Q4H PRN PRN Reason: Pain, moderate (4-7) - Scribe Statement The provider has reviewed the documentation as recorded by the Lolly Vogt Provider Scribe Attestation: All medical record entries made by the Scribe were at my direction and personally dictated by me. I have reviewed the chart and agree that the record accurately reflects my personal performance of the history, physical exam, medical decision making, and the department course for this patient. I have also personally directed, reviewed, and agree with the discharge instructions and disposition. Disposition/Present on Arrival - Present on Arrival Any Indicators Present on Arrival: No History of DVT/PE: No History of Uncontrolled Diabetes: No Urinary Catheter: No History of Decub. Ulcer: No History Surgical Site Infection Following: None - Disposition Have Diagnosis and Disposition been Completed?: Yes Diagnosis: Lupus Disposition: HOME/ ROUTINE Disposition Time: 06:00 Condition: GOOD Discharge Instructions (ExitCare): Lupus Prescriptions: predniSONE [predniSONE Tab] 20 mg PO TID #15 tab Acetaminophen with Codeine [Tylenol with Codeine #3 Tablet] 1 each PO QID #12 tablet Referrals: PCP,NO [Primary Care Provider] - Follow up with primary Forms: [email or web address] [facility] ([place])
[2018-12-24] MEDS ORDERED: Sodium Chloride 0.9% 1,000 ML IV SCH (23:15)
[2018-12-24 23:48] LABS: BASO # 0.02 K/mm3 (0.0-2.0); BASO % 0.4 % (0.0-3.0); EOS % 0.7 % (1.5-5.0); HEMOGLOBIN 9.6 g/dL (12.0-16.0); LYMPH # 2.9 (1.2-3.4); LYMPH % 52.1 % (22.0-35.0); MEAN CELL VOLUME 66.9 fl (80.0-105.0); MEAN CORPUSCULAR HEMOGLOBIN 20.1 pg (25.0-35.0); MEAN CORPUSCULAR HGB CONC 30.1 g/dl (31.0-37.0); MONO # 0.4 (0.1-0.6); PLATELET COUNT 284 10^3/uL (120.0-450.0); RED CELL DISTRIBUTION WIDTH 20.6 % (11.5-14.5); WHITE BLOOD COUNT 5.6 10^3/uL (4.5-11.0)
[2018-12-25 01:02] LABS: INR 1.06; PARTIAL THROMBOPLASTIN TIME 27.8 Seconds (26.9-38.3); PROTHROMBIN TIME 11.8 SECONDS (9.4-12.5)
[2018-12-25 01:04] LABS: URINE BILIRUBIN NEGATIVE (NEGATIVE); URINE BLOOD NEGATIVE (NEGATIVE); URINE COLOR LIGHT YELLOW (YELLOW); URINE GLUCOSE (UA) NEGATIVE (NEGATIVE); URINE LEUKOCYTE ESTERASE NEGATIVE Leu/uL (NEGATIVE); URINE PROTEIN NEGATIVE mg/dL (<30 mg/dL); URINE UROBILINOGEN 0.2 E.U./dL (<1 E.U./dL)
[2018-12-25 01:04] LABS: ALB/GLOB RATIO 1.2 (1.1-1.8); ALT/SGPT 23 U/L (7-56); AST/SGOT 21 U/L (14-36); BLOOD UREA NITROGEN 19 mg/dL (7-21); CALCIUM 8.8 mg/dL (8.4-10.5); GFR NON-AFRICAN AMERICAN > 60
[2018-12-25 01:05] LABS: URINE APPEARANCE CLEAR (CLEAR)
[2018-12-25 01:20] LABS: TROPONIN I < 0.01 ng/mL
[2018-12-25 01:50] LABS: BARBITURATES, UR NEGATIVE (NEGATIVE); BENZODIAZEPINES, UR NEGATIVE (NEGATIVE); OPIATES, UR NEGATIVE (NEGATIVE); PHENCYCLIDINE, UR NEGATIVE (NEGATIVE)
[2018-12-25 04:35] LABS: RBC 4.77 10^6/uL (3.5-6.1)
[2018-12-25 06:22] VITALS: BP 118/79; PULSE 81; RESP 16; O2SAT 98
--- NOTE | 2018-12-25 09:54 | CARD ---
APPROVED REPORT Date of service: 12/25/2018 EKG Measurement Heart [id number] <Conclusion> Normal sinus rhythm Normal ECG
== END 2018-12-25 05:59 | disposition home or self-care (01) ==
LOC: ED 22:29
DX: M32.9 Systemic lupus erythematosus, unspecified (principal); M06.9 Rheumatoid arthritis, unspecified; Z86.73 Personal history of transient ischemic attack (TIA), and cerebral infarction without residual deficits
CPT/HCPCS: 80053; 81003; 81025; 84484; 85025; 85610; 85730; 87804; 93005; 96374; 96375; 99285; G0480; J2270; J2405; J7030

== ENCOUNTER 2019-04-16 12:14 | Emergency (ER) | payer SELFPAY ==
[2019-04-16 12:17] VITALS: BMI 28.2
[2019-04-16 12:29] VITALS: TEMP 98.7
--- NOTE | 2019-04-16 12:45 | ED PDOC ---
Arrival/HPI - General Historian: Patient - History of Present Illness Narrative History of Present Illness (Text): 04/16/19 12:46 Patient is a 44 yo female with lupus, RA, and h/o of CVA who presents with leg cramps, joint pain, nausea, and vomiting. Patient states that she has been feeling poorly for the past few weeks. She has not seen outpatient doctors in awhile since she lost insurance, and, therefore, she has not been on any maintenance therapy for her rheumatologic issues (previously on Plaquenil). Patient states that she gets occasional leg swelling for which she takes a water pill. Additionally, she take Diclofenac and Flexeril as needed for joint pain. She says none of these things significantly relieve her symptoms. She decided to come to the hospital today because she could not concentrate at work. She states she has not really tolerated PO intake for a few weeks and feels dehydration. Additionally, she feels constipated. She reports taking PO steroids in the past, but she does not like how they make her feel. Time/Duration: > week Symptom Onset: Gradual Symptom Course: Worsening <Cindy Garcia - Last Filed: 04/16/19 15:30> <Thierno Guzman - Last Filed: 04/16/19 16:04> - General Chief Complaint: Flu-like Symptoms Time Seen by Provider: 04/16/19 12:23 Past Medical History - Provider Review Nursing Documentation Reviewed: Yes - Infectious Disease Hx of Infectious Diseases: None - Tetanus Immunization Tetanus Immunization: Unknown - Cardiac Hx Cardiac Disorders: No - Pulmonary Hx Respiratory Disorders: No - Neurological Hx Neurological Disorder: Yes HX Cerebrovascular Accident: Yes (2010) - HEENT Hx HEENT Disorder: No - Renal Hx Renal Disorder: No - Endocrine/Metabolic Hx Endocrine Disorders: Yes Hx Systemic Lupus Erythematosus: Yes - Hematological/Oncological Hx Blood Disorders: No - Integumentary Hx Dermatological Disorder: No - Musculoskeletal/Rheumatological Hx Musculoskeletal Disorders: Yes Hx Arthritis: Yes (Rheumatoid) Hx Rheumatoid Arthritis: Yes Other/Comment: lupus - Gastrointestinal Hx Gastrointestinal Disorders: No - Genitourinary/Gynecological Hx Genitourinary Disorders: No - Psychiatric Hx Psychophysiologic Disorder: No Hx Depression: No Hx Emotional Abuse: No Hx Physical Abuse: No Hx Substance Use: No - Past Surgical History Past Surgical History: No Previous - Anesthesia Hx Anesthesia: No Hx Anesthesia Reactions: No Hx Malignant Hyperthermia: No - Suicidal Assessment Feels Threatened In Home Enviroment: No <Cindy Garcia - Last Filed: 04/16/19 15:30> Family/Social History - Physician Review Nursing Documentation Reviewed: Yes Family/Social History: Unknown Family HX Smoking Status: Never Smoked Hx Alcohol Use: No Hx Substance Use: No Hx Substance Use Treatment: No <Cindy Garcia - Last Filed: 04/16/19 15:30> Allergies/Home Meds <Cindy Garcia - Last Filed: 04/16/19 15:30> <MeganThierno Catrina - Last Filed: 04/16/19 16:04> Allergies/Adverse Reactions: Allergies aspirin [From Wanda Aspirin] Allergy (Verified 04/16/19 12:30) RASH gallagher pepper Allergy (Uncoded 04/16/19 12:30) RASH eggplant Allergy (Uncoded 04/16/19 12:30) RASH Home Medications: Home Meds Medication Instructions Recorded Confirmed Cyclobenzaprine [Flexeril] 10 mg PO TID 04/16/19 04/16/19 Diclofenac 50 mg PO BID 04/16/19 04/16/19 Hydroxychloroquine Sulfate 200 mg PO DAILY 04/16/19 04/16/19 [Plaquenil] Review of Systems - Review of Systems Constitutional: Fatigue. absent: Fevers, Night Sweats Eyes: absent: Vision Changes ENT: absent: Hearing Changes, Tinnitus Respiratory: absent: SOB, Cough Cardiovascular: Edema. absent: Chest Pain, Palpitations Gastrointestinal: Constipation, Nausea, Vomiting. absent: Abdominal Pain Genitourinary Female: absent: Dysuria, Hematuria Musculoskeletal: Arthralgias, Back Pain, Joint Swelling, Myalgias Skin: absent: Rash, Pruritis, Skin Lesions Neurological: Headache. absent: Dizziness, Focal Weakness Endocrine: absent: Diaphoresis Hemo/Lymphatic: absent: Adenopathy, Easy Bleeding, Easy Bruising <Cindy Garcia - Last Filed: 04/16/19 15:30> Physical Exam Vital Signs Reviewed: Yes Vital Signs Temp Pulse Resp BP Pulse Ox 04/16/19 12:24 98.7 F 78 18 117/86 97 Temperature: Afebrile Blood Pressure: Normal Pulse: Regular Respiratory Rate: Normal Appearance: Positive for: Non-Toxic, Comfortable Pain Distress: Mild Mental Status: Positive for: Alert and Oriented X 3 - Systems Exam Head: Present: Atraumatic, Normocephalic Pupils: Present: PERRL Extroacular Muscles: Present: EOMI Conjunctiva: Present: Normal Mouth: Present: Dry Respiratory/Chest: Present: Clear to Auscultation, Good Air Exchange Cardiovascular: Present: Regular Rate and Rhythm, Normal S1, S2 Abdomen: No: Tenderness, Distention Upper Extremity: Present: Normal Inspection, Neurovascularly Intact. No: Swelling Lower Extremity: Present: Normal Inspection, Neurovascularly Intact. No: Edema Neurological: Present: GCS=15, CN II-XII Intact, Speech Normal Skin: Present: Warm, Dry, Normal Color Psychiatric: Present: Alert, Oriented x 3, Normal Insight, Normal Concentration <Cindy Garcia - Last Filed: 04/16/19 15:30> Vital Signs Temp Pulse Resp BP Pulse Ox 04/16/19 12:24 98.7 F 78 18 117/86 97 <Thierno Guzman - Last Filed: 04/16/19 16:04> Medical Decision Making ED Course and Treatment: 04/16/19 13:15 CBC, CMP, Mg, Ph, UA Solumedrol, Toradol IVF 04/16/19 14:36 Re-evaluated patient. She says she is feeling improved after mediations and fluids. She states she still feels nauseated and would like some crackers. 04/16/19 15:15 Discussed low hemoglobin with patient. Explained to patient that this is an acute change and may be contributing to her symptoms. Explained the benefits and risk of blood transfusion. All questions and concerns were addressed and answered. Patient expressed understanding but refused to have a transfusion. Risks of leaving against medical advice and benefits of further treatment were explained. Patient ultimately decided to leave against medical advice. 04/16/19 15:18 The patient declines to have further medical evaluation and treatment and wishes to leave the Emergency Department. This action is against my medical advice to the patient, and with informed refusal. The patient was told that evaluation and treatment are necessary and a full explanation of the rationale was given. The risks of leaving were explained to the patient and include, but are not limited to, worsening of known or currently unknown conditions, permanent disability and from undiagnosed or untreated conditions The patient has the capacity to make this informed decision and understands the clinical situation and my explanation of the risks of leaving. The patient voluntarily accepts these risks, and a signed AMA form documenting our conversation was obtained. The patient was given the opportunity to ask questions and reconsider. The patient was encouraged to return to the Emergency Department at any time for further ca re. Re-evaluation Time: 14:36 Reassessment Condition: Improving,but remains with symptoms - Lab Interpretations Lab Results: 04/16/19 13:25 04/16/19 13:25 Lab Results 04/16/19 13:25: Sodium 137, Potassium 4.8, Chloride 106, Carbon Dioxide 23, Anion Gap 13, BUN 11, Creatinine 0.7, Est GFR ( Amer) > 60, Est GFR (Non- Af Amer) > 60, Random Glucose 82, Calcium 8.6, Phosphorus 3.8, Magnesium 2.2, Total Bilirubin 0.5, AST 34, ALT 30, Alkaline Phosphatase 52, Total Protein 7.3, Albumin 4.1, Globulin 3.2, Albumin/Globulin Ratio 1.3 04/16/19 13:25: WBC 3.8 L D, RBC 4.00, Hgb 7.2 L D, Hct 25.7 L, MCV 64.3 L, MCH 18.0 L, MCHC 28.0 L, RDW 19.6 H, Plt Count 335, MPV 9.4, Neut % (Auto) 31.9 L, Lymph % (Auto) 57.7 H, [place] % (Auto) 8.1 H, Eos % (Auto) 0.5 L, Baso % (Auto) 1.8, Lymph # (Auto) 2.2, [place] # (Auto) 0.3, Eos # (Auto) 0.0, Baso # (Auto) 0.07, Absolute Neuts (auto) 1.21 L, Differential Comment 04/16/19 13:00: Urine Color Yellow, Urine Appearance Sl cloudy, Urine pH 6.5, Ur Specific [place] 1.020, Urine Protein Negative, Urine Glucose (UA) Negative, Urine Ketones Negative, Urine Blood Negative, Urine Nitrate Negative, Urine Bilirubin Negative, Urine Urobilinogen 0.2, Ur Leukocyte Esterase Trace H, Urine RBC None, Urine WBC 0 - 2, Ur Epithelial Cells 4 - 5 I have reviewed the lab results: Yes Interpretation: Abnormal lab values (low Hgb (7.2)) <iCndy Garcia - Last Filed: 04/16/19 15:30> ED Course and Treatment: 04/16/19 13:28 Patient Seen with Resident: In agreement with resident note which contains more details about the patient. Patient seen and evaluated with resident. Came up with plan and treatment together. Patient's wants to leave AMA. Agree with AMA discussion documented above which I had with the patient as well. Patient does not want to be admitted or receive a blood transfusion despite our efforts to convince her. She has capacity to make decisions. - Lab Interpretations Lab Results: Urine Color Yellow (YELLOW) 04/16/19 13:00 Urine Appearance Sl cloudy (CLEAR) 04/16/19 13:00 Urine pH 6.5 (4.7-8.0) 04/16/19 13:00 Ur Specific [place] 1.020 (1.005-1.035) 04/16/19 13:00 Urine Protein Negative mg/dL (<30 mg/dL) 04/16/19 13:00 Urine Glucose (UA) Negative mg/dL (NEGATIVE) 04/16/19 13:00 Urine Ketones Negative mg/dL (NEGATIVE) 04/16/19 13:00 Urine Blood Negative (NEGATIVE) 04/16/19 13:00 Urine Nitrate Negative (NEGATIVE) 04/16/19 13:00 Urine Bilirubin Negative (NEGATIVE) 04/16/19 13:00 Urine Urobilinogen 0.2 E.U./dL (<1 E.U./dL) 04/16/19 13:00 Ur Leukocyte Esterase Trace Darlene/uL (NEGATIVE) H 04/16/19 13:00 - Medication Orders Current Medication Orders: Sodium Chloride (Sodium Chloride 0.9%) 1,000 mls @ 999 mls/hr IV .[id number] STA Stop: 04/16/19 14:06 Discontinued Medications Ketorolac Tromethamine (Toradol) 30 mg IVP STAT STA Stop: 04/16/19 13:07 Methylprednisolone (Solu-Medrol) 125 mg IVP STAT STA Stop: 04/16/19 13:07 <Thierno Guzman - Last Filed: 04/16/19 16:04> - PA / GRAPHICS INTERN / Resident Statement / has reviewed & agrees with the documentation as recorded. MIRZA has examined the patient and agrees with the treatment plan. <Thierno Guzman - Last Filed: 04/16/19 16:04> Disposition/Present on Arrival - Present on Arrival Any Indicators Present on Arrival: No History of DVT/PE: No History of Uncontrolled Diabetes: No Urinary Catheter: No History of Decub. Ulcer: No History Surgical Site Infection Following: None - Disposition Have Diagnosis and Disposition been Completed?: Yes Disposition Time: 15:07 Patient Plan: Other (AMA) <Cindy Garcia - Last Filed: 04/16/19 15:30> <Thierno Guzman - Last Filed: 04/16/19 16:04> - Disposition Diagnosis: Anemia, Nausea and vomiting, Joint pain, Dehydration, Lupus Disposition: AGAINST MEDICAL ADVICE Condition: STABLE Discharge Instructions (ExitCare): Lupus, Anemia of Chronic Disease, Nausea and Vomiting, Adult (DC) Additional Instructions: BABATUNDE MYERS, thank you for letting us take care of you today. Your provider was Thierno Guzman DO and you were treated for joint pains, nausea and v omiting, and dehydration. The emergency medical care you received today was directed at your acute symptoms. If you were prescribed any medication, please fill it and take as directed. It may take several days for your symptoms to resolve. Return to the Emergency Department if your symptoms worsen, do not improve, or if you have any other problems. Please contact your doctor or call one of the physicians/clinics you have been referred to that are listed on the Patient Visit Information form that is included in your discharge packet. Bring any paperwork you were given at discharge with you along with any medications you are taking to your follow up visit. Our treatment cannot replace ongoing medical care by a primary care provider outside of the emergency department. Thank you for allowing the [facility] team to be part of your care today. Please be advised, you signed out of the hospital against medical advice. This does not mean that you cannot return to the hospital if needed. Prescriptions: Ferrous Sulfate [Feosol] 325 mg PO DAILY #7 tab Ondansetron HCl [Zofran] 4 mg PO Q8H PRN #12 tablet PRN Reason: Nausea/Vomiting Prednisone [Deltasone] 40 mg PO DAILY #4 tablet Ref[place] [facility] [place] - Follow up with primary [facility] [Outside] - Follow up with primary Forms: [employer] (Spanish), WORK NOTE
[2019-04-16] MEDS ORDERED: Sodium Chloride 0.9% 1,000 ML IV STA (13:06)
[2019-04-16 13:20] LABS: PH,URINE 6.5 (4.7-8.0); URINE BILIRUBIN NEGATIVE (NEGATIVE); URINE BLOOD NEGATIVE (NEGATIVE); URINE GLUCOSE (UA) NEGATIVE (NEGATIVE); URINE LEUKOCYTE ESTERASE TRACE Leu/uL (NEGATIVE); URINE PROTEIN NEGATIVE mg/dL (<30 mg/dL); URINE UROBILINOGEN 0.2 E.U./dL (<1 E.U./dL)
[2019-04-16 13:23] LABS: URINE APPEARANCE SL CLOUDY (CLEAR); URINE COLOR YELLOW (YELLOW)
[2019-04-16 13:31] LABS: URINE WBC 0 - 2 /hpf (0-6)
[2019-04-16 14:08] LABS: BASO # 0.07 K/mm3 (0.0-2.0); BASO % 1.8 % (0.0-3.0); EOS % 0.5 % (1.5-5.0); HEMOGLOBIN 7.2 g/dL (12.0-16.0); LYMPH # 2.2 (1.2-3.4); LYMPH % 57.7 % (22.0-35.0); MEAN CELL VOLUME 64.3 fl (80.0-105.0); MEAN PLATELET VOLUME 9.4 fl (7.0-11.0); MONO # 0.3 (0.1-0.6); MONO % 8.1 % (1.0-6.0); RED CELL DISTRIBUTION WIDTH 19.6 % (11.5-14.5); WHITE BLOOD COUNT 3.8 10^3/uL (4.5-11.0)
[2019-04-16 14:10] LABS: ALB/GLOB RATIO 1.3 (1.1-1.8); ALBUMIN 4.1 g/dL (3.0-4.8); ALT/SGPT 30 U/L (7-56); AST/SGOT 34 U/L (14-36); BLOOD UREA NITROGEN 11 mg/dL (7-21); CALCIUM 8.6 mg/dL (8.4-10.5); GFR NON-AFRICAN AMERICAN > 60
[2019-04-16 15:29] VITALS: BP 110/68; PULSE 80; RESP 17; O2SAT 98
== END 2019-04-16 15:44 | disposition left against medical advice (07) ==
LOC: ED 12:14
DX: R11.2 Nausea with vomiting, unspecified (principal); D64.9 Anemia, unspecified; E86.0 Dehydration; M32.9 Systemic lupus erythematosus, unspecified; M25.50 Pain in unspecified joint; M06.9 Rheumatoid arthritis, unspecified; Z86.73 Personal history of transient ischemic attack (TIA), and cerebral infarction without residual deficits
CPT/HCPCS: 80053; 81001; 81025; 83735; 84100; 85025; 87086; 96361; 96374; 96375; 99285; J1885; J2930; J7030